=== PATIENT | male | born 1970 | race Hispanic/Latino ===

== ENCOUNTER 2022-11-06 15:29 | Outpatient (RCR) | payer BC | END 2022-11-07 | LOC: OT 15:29 | PROVIDERS: ATTEND Specialist | DX: S93.491A Sprain of other ligament of right ankle, initial encounter (principal); S93.411A Sprain of calcaneofibular ligament of right ankle, initial encounter ==

== ENCOUNTER 2022-11-23 14:59 | Outpatient (RCR) | payer BC | END 2022-12-05 | LOC: PT 14:59 | PROVIDERS: ATTEND Specialist | DX: S93.491A Sprain of other ligament of right ankle, initial encounter (principal); S93.411A Sprain of calcaneofibular ligament of right ankle, initial encounter ==